=== PATIENT | male | born 1970 | race Caucasian/White ===

== ENCOUNTER → 2018-04-02 09:28 | Outpatient (CLI) | payer OTHER, SELFPAY ==
--- NOTE | 2018-04-02 09:32 | XR_ITS ---
XR chest 2V Ordering Physician: Iqra Johnson Patient Age: 47 years: Male HISTORY: ITS.REASON: cough4 days. Congestion. TECHNIQUE: PA and lateral chest. COMPARISON : No prior studies FINDINGS Lungs clear with nothing definitely acute HISTORY question some very subtle coarsening of lung markings at the left midlung but this most likely reflects merely technique. Doubt early infiltrate . Heart, diana and mediastinal structures satisfactory. Chest wall unremarkable. No pleural effusion or pneumothorax. . There is slight indentation upon the left aspect of the trachea likely due to head turned to the right for the exam however warrants correlation to exclude any palpable enlargement of left lobe of thyroid IMPRESSION: ------ Nothing definitely acute . Upper normal markings left midlung likely accentuated by technique. (Doubt very subtle subtle interstitial infiltrate at this point] . Addendum I suspect patient's head turned the right more likely accounts for Slight indentation upon the left aspect the trachea at base of neck but palpation due to the enlarged left lobe of thyroid
== END ==
PROVIDERS: PCP Emergency Medicine; Visit Provider Nurse Practitioner Family
DX: R05 Cough (principal); R53.83 Other fatigue
CPT/HCPCS: 71046

== ENCOUNTER → 2019-07-20 13:26 | Outpatient (CLI) | payer BC, SELFPAY | PROVIDERS: PCP Emergency Medicine; Visit Provider Emergency Medicine | DX: G47.33 Obstructive sleep apnea (adult) (pediatric) (principal) | CPT/HCPCS: G0399 ==

== ENCOUNTER → 2019-11-11 12:54 | Outpatient (CLI) | payer OTHER, BC, SELFPAY | PROVIDERS: PCP Emergency Medicine; Visit Provider Specialist | DX: G47.33 Obstructive sleep apnea (adult) (pediatric) (principal) | CPT/HCPCS: 94762 ==

== ENCOUNTER → 2020-11-06 11:32 | Outpatient (CLI) | payer OTHER, BC, SELFPAY ==
--- NOTE | 2020-11-06 11:38 | XR_ITS ---
PROCEDURE: XR CHEST PORTABLE Referring Doctor: Neva Yeboah Patient Age:50Y CLINICAL HISTORY: COVID OUTPATIENT The COMPARISON: CR CXR2V XR chest 2V from 04/02/2018 FINDINGS: AP single-view CXR performed today. With comparison to 04/02/2018 CXR The cardiomediastinal silhouette and pulmonary vascularity are within normal limits. The lungs are clear without infiltrates, suspicious nodules, or pleural effusions. No acute bony abnormalities. Calcified hilar nodes reflect right more so than left-reflect old granulomatous disease. Tiny calcified granuloma just above right hemidiaphragm-stable IMPRESSION: No acute findings. . Stable chest with nothing acute. Dictated by: Hugo Amin MD 11/06/2020 16:55 Hugo Amin MD in [facility] 11/06/2020 16:55
[2020-11-07 09:43] LABS: Covid-19 Nasal PCR Sendout P&C POSITIVE
== END ==
PROVIDERS: PCP Emergency Medicine; Visit Provider Physician Assistant
DX: Z20.828 Contact with and (suspected) exposure to other viral communicable diseases (principal); U07.1 COVID-19
CPT/HCPCS: 71045; U0004